=== PATIENT | female | born 1975 | race African-American/Black ===

== ENCOUNTER → 2018-05-17 | Emergency (ER) | payer MEDICAID ==
[~2018-05-17] VITALS: Ht 172.7 cm; Wt 86.2 kg
[~2018-05-17] MED LIST: BENADRYL50 MG PO; CEPHALEXIN500 MG ORAL; DiphenhydrAMINE 25mg/10ml Elixir ORAL ONE; NKM
[2018-05-17 19:57] VITALS: BP 162/102
--- NOTE | 2018-05-17 20:31 | Emergency Room Report ---
History of Present Illness General Chief Complaint: Skin Rash/Abscess Source: Patient Present Illness HPI 42-year-old female patient presents the ER complaining of swelling near her left eye and cheek times 1 day. Patient reports that she woke up this morning she had swelling near her left eye. Denies eye pain. Denies vision changes. Denies foreign body sensation. Denies eye crusting. Denies pain with eye movement. Reports that the rash spread towards her mouth, states that she used tea tree oil at home and the symptoms improved. Patient denies stridor. Denies fever, chest pain, shortness of breath, vomiting. Patient reports pain and swelling site. Denies pruritus. Denies new detergents or soaps. Allergies: Coded Allergies: No Known Allergies (Unverified , 11/25/12) Patient History Past Medical History: see triage record Last Menstrual Period: 04/28/2018 Now: No : 16 Para: 3 Reviewed Nursing Documentation: PMH: Agreed; PSxH: Agreed Nursing Documentation-PMH Past Medical History: No Stated History Review of Systems All Other Systems: negative except mentioned in HPI Physical Exam Vital Signs Date Time Temp Pulse Resp B/P (MAP) Pulse Ox O2 Delivery O2 Flow Rate FiO2 05/17/18 19:57 97.9 114 16 162/102 98 Room Air Sp02 EP Interpretation: reviewed, normal General Appearance: well appearing, no apparent distress, alert, GCS 15, non- toxic Head: normocephalic, atraumatic, other - Mild erythema and edema noted near left eye consistent with urticaria, no warmth to touch, no palpable mass, no red streaking, no induration Eyes: bilateral eye normal inspection, bilateral eye PERRL, bilateral eye EOMI ENT: hearing grossly normal, normal pharynx, no angioedema, normal voice, TMs + canals normal, uvula midline, moist mucus membranes, other - no angioedema Neck: full range of motion Respiratory: lungs clear, normal breath sounds, no rhonchi, no respiratory distress, no accessory muscle use, no wheezing, speaking full sentences, other - no stridor Cardiovascular #1: regular rate, rhythm, no edema Musculoskeletal: back normal, digits/nails normal, gait/station normal, normal range of motion, non-tender Neurologic: alert, oriented x3, responsive, motor strength/tone normal, sensory intact Psychiatric: mood/affect normal Skin: no rash Medical Decision Making PA Attestation Dr. Clements is my supervising Physician whom patient management has been discussed with. Diagnostic Impression: Primary Impression: Allergic reaction ER Course Pt. presents to the ED c/o swelling near left eye and face. Ddx considered but are not limited to allergic reaction, cellulitis, dental infection, orbital cellulitis. Patient has no pain with eye movement, does not require imaging at this time, low suspicion for preseptal or orbital cellulitis. Vital signs: are WNL, pt. is afebrile ER COURSE: On physical exam, patient has mild edema and edema consistent with likely urticaria due to allergic reaction. Provide patient with Benadryl in the ER. Advised patient to follow-up with primary care provider for further evaluation and treatment. No stridor, no angioedema, low suspicion for anaphylaxis, does not require epinephrine at this time. No warmth to touch, no palpable mass, low suspicion for cellulitis, does not require antibiotics. Advised patient on use of cool compresses. Advised patient on use of Claritin and Benadryl. Patient eloped following being provided with Benadryl. Patient was brought in by , stated was not going to be driving home. - Please note that this Emergency Department Report was dictated using [employer] bus [employer] technology software, occasionally this can lead to erroneous entry secondary to interpretation by the dictation equipment. Last Vital Signs Date Time Temp Pulse Resp B/P (MAP) Pulse Ox O2 Delivery O2 Flow Rate FiO2 05/17/18 19:57 97.9 114 16 162/102 98 Room Air Disposition: ELOPED Condition: Serious Harvey Blackwood May 17, 2018 20:31
== END | disposition home or self-care (01) ==
LOC: EMR 20:12
DX: T78.40XA Allergy, unspecified, initial encounter (principal); X58.XXXA Exposure to other specified factors, initial encounter; R60.0 Localized edema
CPT/HCPCS: 99282